=== PATIENT | male | born 1950 | race Caucasian/White ===

== ENCOUNTER 2021-06-14 08:15 | Outpatient (CLI) | payer MEDICARE, SELFPAY ==
--- NOTE | 2021-06-14 09:23 | ECG_ITS ---
Measurements Intervals [place] Rate: 55 P: 5 OR: 152 QRS: -33 QRSD: 107 T: 62 QT: 451 QTc: 435 Interpretive Statements SINUS BRADYCARDIA LEFT AXIS DEVIATION INCOMPLETE RIGHT BUNDLE BRANCH BLOCK BASELINE ARTIFACT- I, II, AVR, AVL BORDERLINE ECG Electronically Signed On 06-14-2021 9:41:49 CDT by Joaquim Xiong D.O.
[2021-06-14 10:19] LABS: Basophils Percent Auto 0.3 % (0.2-1.2); Eosinophils Absolute Auto 0.2 K/mm3 (0-0.3); Hematocrit 47.7 % (42.0-52.0); Hemoglobin 15.4 g/dL (14.0-18.0); Immature Granulocyte Absolute 0.03 K/mm3 (0.00-0.031); Immature Granulocyte Percent A 0.4 % (0-0.5); Lymphocytes Absolute Auto 1.81 K/mm3 (0.9-3.2); Lymphocytes Percent Auto 23.9 % (18.3-44.2); Mean Corpuscular HGB Conc 32.3 g/dl (32-36); Mean Corpuscular Hemoglobin 27.1 pg (26-34); Mean Corpuscular Volume 83.8 fl (80-100); Mean Platelet Volume 11.4 fl (7.4-10.4); Monocytes Absolute Auto 0.5 K/mm3 (0.1-0.6); Monocytes Percent Auto 6.3 % (2.6-8.5); Neutrophils Percent Auto 66.1 % (45.5-73.1); Platelet Count Result 204 k/mm3 (150-375); Red Blood Count 5.69 M/mm3 (4.6-6.20); White Blood Count 7.6 K/mm3 (4.5-10.0)
[2021-06-14 10:38] LABS: Albumin Level 4.8 g/dL (3.5-5.1); Estimated Glomerular Filt Rate 46; Glucose 104 mg/dL (65-110)
[2021-06-14 11:49] LABS: Urine Cotinine NEGATIVE
[2021-06-14 12:59] LABS: Hemoglobin A1C 6.1 % (<5.7)
== END 2021-06-14 08:16 | disposition home or self-care (01) ==
LOC: ANHSURGERY 08:18
PROVIDERS: PCP Internal Medicine; Visit Provider Orthopaedic Surgery
DX: Z01.818 Encounter for other preprocedural examination (principal); M16.11 Unilateral primary osteoarthritis, right hip; R00.1 Bradycardia, unspecified; I45.10 Unspecified right bundle-branch block; Z51.81 Encounter for therapeutic drug level monitoring; Z79.899 Other long term (current) drug therapy
CPT/HCPCS: 80307; 82040; 82565; 82947; 83036; 85025; 93005

== ENCOUNTER 2021-06-28 01:43 | Day surgery (SDC) | payer MEDICARE, SELFPAY ==
[2021-06-14 08:40] VITALS: BP 134/68; PULSE 57; RESP 18; TEMP 36.4; O2SAT 97; BMI 35.1
--- NOTE | 2021-06-22 15:17 | PM.IMHP ---
H&P: HPI History of Present Illness Date/Time: 06/22/21 15:17 The patient is a 71-year-old male who presents with chronic ongoing history of right hip and groin pain due to primary osteoarthritis right hip joint. The patient is aching pain is groin radiating to the thigh worse with activities and relieved by rest. He has start up pain rest pain and night pain limited motion is noted as well over time. Despite conservative measures including activity modification and anti-inflammatories the patient's symptoms continue. X-rays show significant severe degenerative joint disease in the right hip joint. At this point the patient has discussed further treatment options in detail with Dr. Ramos has failed conservative measures he would now like to proceed with a right total hip arthroplasty. The patient is doing well status post left total hip arthroplasty and quite pleased with the results. Chief Complaint: Severe primary osteoarthritis right hip joint with right hip pain. Review of Systems Review of Systems: All systems reviewed & are unremarkable except as noted in HPI and below PMFSH Social History Social History Smoking packs per day: 3 Smoking cigarettes per day: 60.0 Years smoked: 15 Smoking pack-years: 45.00 Smoking status: Former smoker Tobacco type: cigarettes Smoking end date: 09/02/87 Alcohol intake: former Alcohol use details: SOCIALLY IN PAST Substance use: never Additional living arrangements comments: [facility] Spiritual care concerns: No Meds Home Medications and Allergies Home Medications Medication Instructions Recorded Confirmed Type aspirin [Adult Aspirin EC Low 81 mg PO DAILY 06/14/21 06/14/21 History Strength] clopidogrel 75 mg PO DAILY 06/14/21 06/14/21 History diclofenac sodium 75 mg PO BID PRN 06/14/21 06/14/21 History fenofibrate 160 mg PO DAILY 06/14/21 06/14/21 History lisinopril 40 mg PO QNOON 06/14/21 06/14/21 History metoprolol tartrate 50 mg PO BID 06/14/21 06/14/21 History rosuvastatin 40 mg PO DAILY 06/14/21 06/14/21 History tramadol 50 mg PO Q6-8H PRN 06/14/21 06/14/21 History Allergies Allergy/AdvReac Type Severity Reaction Status Date / Time meperidine Allergy Severe CONVULSIONS Verified 06/14/21 08:27 Exam Narrative: On exam the patient is noted be a well-developed well-nourished male no acute distress he is alert oriented x3. Normal mood and affect. He is noted be 5 ft 10 in tall 250 lb with a BMI of 35.9. Hearing and vision are intact. Respiratory is good no distress. Pulse regular rate rhythm. Abdomen benign. Extremities showed the patient's right hip to be painful with manipulation and range of motion. He has a positive Stinchfield positive TADEO exam and pain with extremes of motion, the patient has limited internal external rotation. Patient walks with an antalgic gait because of his right groin and thigh pain. Strength is 5 5. Neurovascular is intact. Skin is intact without rashes or lesions. X-rays are as above. Central nervous system exam within normal limits. Assessment and Plan Additional Plan By previous x-ray and exam the patient is noted to have advanced primary osteoarthritis right hip joint. He is status post left total hip arthroplasty doing well with this. The patient has discussed risks benefits limitations and alternatives to surgery in great detail Dr. Ramos the patient is now ready to proceed with a right total hip arthroplasty. The patient is scheduled to undergo surgery 06/28/2021 at [facility] Dr. Ramos. The patient voiced understanding and agrees with the above plan.
--- NOTE | 2021-06-27 15:25 | P.PNAN_ITS ---
Anes - Initial Pre Proc Eval Procedure: Operation Date: 06/28/21 07:30 Proposed Procedures p Right Total Hip Arthroplasty - Kyle Ramos MD Date/Time: 06/27/21 15:25 Surgeon: Kyle Rmaos MD Pre Op Diagnosis: OA Right Hip Patient Data Age: 71 Gender: M Height: 1.78 m Weight: 111.1 kg Last Vital Signs Temp 97.6 F 06/14/21 08:40 Pulse 57 L 06/14/21 08:40 Resp 18 06/14/21 08:40 BP 134/68 06/14/21 08:40 Pulse Ox 97 06/14/21 08:40 Allergies Allergy/AdvReac Type Severity Reaction Status Date / Time meperidine Allergy Severe CONVULSIONS Verified 06/28/21 07:04 Home Medications Medication Instructions Recorded Confirmed Type aspirin [Adult Aspirin EC Low 81 mg PO DAILY 06/14/21 06/28/21 History Strength] clopidogrel 75 mg PO DAILY 06/14/21 06/28/21 History diclofenac sodium 75 mg PO BID PRN 06/14/21 06/14/21 History fenofibrate 160 mg PO DAILY 06/14/21 06/28/21 History lisinopril 40 mg PO QNOON 06/14/21 06/28/21 History metoprolol tartrate 50 mg PO BID 06/14/21 06/28/21 History rosuvastatin 40 mg PO DAILY 06/14/21 06/28/21 History tramadol 50 mg PO Q6-8H PRN 06/14/21 06/28/21 History Patient hx anesthesia problems: none Family hx anesthesia problems: none Results Review: All pre-operative results and documents have been reviewed as part of the pre-operative evaluation. [facility] Past Medical History Medical History (Updated 06/27/21 @ 15:26 by Jose Stern MD) Atrial fibrillation CAD (coronary artery disease) Hyperlipidemia Hypertension Surgical History Surgical History (Updated 06/27/21 @ 15:26 by Jose Stern MD) Stented coronary artery Social History Social History Smoking packs per day: 3 Smoking cigarettes per day: 60.0 Years smoked: 15 Smoking pack-years: 45.00 Smoking status: Former smoker Tobacco type: cigarettes Smoking end date: 09/02/87 Alcohol intake: former Alcohol use details: SOCIALLY IN PAST Substance use: never Living arrangements: other Additional living arrangements comments: [facility] Spiritual care concerns: No Anes - Eval Final PreProcedure Day of Procedure 06/27/21 15:25 Patient weight: obese Heart: regular rate and rhythm Lungs: clear to auscultation Airway: Mallampati scale class III (discussed loose and chipped teeth; he's aware of potential damage and accepts) Neurological: alert and oriented Last oral intake: >/= 8 hours ASA classification: III Emergent: no Anesthetic plan: proceed Anesthesia type and monitoring: general ETT and standard monitoring Results Review: All pre-operative results and documents have been reviewed as part of the pre-operative evaluation. Informed Consent: The patient's anesthetic plan and its attendant risks and benefits were discussed with the patient/family/POA. Questions were solicited and answers provided to the satisfaction of the patient/family/POA.
[2021-06-28] VITALS (17 sets, daily range): BP systolic 113–148; BP diastolic 59–84; PULSE 55–90; RESP 10–20; TEMP 36–37.1; O2SAT 92–100
--- NOTE | ~2021-06-28 | XR_ITS ---
EXAMINATION: XR surgery orthopedic EXAM DATE: 06/28/2021 10:09 INDICATION: Right hip intraoperative images. Surgery. TECHNIQUE: Frontal portable intraoperative image of lower aspect of pelvis, hips. FINDINGS: Images demonstrate intermediary right femoral hardware, broach in position. Acetabular com ponent of right hip arthroplasty is in position. There is subcutaneous gas, probably some gas in the hip joint. Left hip arthroplasty hardware in position. IMPRESSION: Intraoperative portable image demonstrating orthopedic hardware in position. Reviewed, dictated and finalized at location B.
[2021-06-28] MEDS: LACTATED RINGERS 1,000 ML 30 ML IV CONT ×2 (06:48→10:40)
[2021-06-28] MEDS: ACETAMINOPHEN 500 MG TABLET 1000 MG PO (06:51)
[2021-06-28] MEDS: TRANEXAMIC ACID 1,000MG/ISO100 1,000 MG/100 ML BAG 200 MG IVPB (06:51)
--- NOTE | 2021-06-28 07:10 | WPDHPUPDATE1 ---
History and Physical Update Update Date/Time: 06/28/21 07:10 History and Physical has been reviewed, including an updated exam of the patient. There are NO changes in the patient's condition. Risks, benefits, and alternatives have been discussed and questions answered. Patient agrees to proceed with procedure.
[2021-06-28] MEDS: ceFAZolin 2 GM/D5W 50 ML 2 GM/50 ML BAG IVPB ×2 (07:37→16:57)
--- NOTE | 2021-06-28 10:07 | P.OP_ITS ---
Procedure Note - Detailed Date of Procedure 06/28/21 Pre-op Diagnosis OA Right Hip Post-op Diagnosis same Procedure Performed [Right] total hip arthroplasty Surgeon Kyle Ramos MD Electric Organ Checker Jarret Manning Anesthesia general Description of Procedure Patient was brought to the operating room and anesthetic was administered. The patient was placed with the [Right] up and steriley prepped and draped in the usual manner. Longitudinal incision was done, dissection carried down to the f ascia. A Hardinge type approach was used and the femoral head was dislocated anteriorly. Femoral head was removed a finger breath above the lesser trochanter. The acetabulum was serially reamed to accept a [54] component. This was impacted into place and secured with 2 25mm screws. A high wall liner was placed. The femur was reamed and broached to accept a [14] component which was impacted into place. A plus [3] ball and neck were placed and the hip was put through full range of motion. The hip was noted to be stable. The wounds were then closed in a layer fashion using #5 ethibond, 2 vicryl, 2-0 vicryl and max. Patient left the operating room in satisfactory condition. Estimated Blood Loss 600 Drains No Packing No Pathology none sent Complications No immediate complications Condition stable Disposition PACU
[2021-06-28 11:18] LABS: Hematocrit 41.5 % (42.0-52.0); Hemoglobin 13.4 g/dL (14.0-18.0)
[2021-06-28] MEDS: HYDROmorphone HCL INJ (*CRX) 1 MG/ML SYR 0.25 MG IV PUSH (11:45)
[2021-06-28] MEDS: lisinopriL 20 MG TABLET 40 MG PO (16:58)
--- NOTE | 2021-06-28 18:09 | PM.IMCN ---
Assessment and Plan Assessment and plan (1) S/P total right hip arthroplasty: Code(s): Z96.641 - Presence of right artificial hip joint Status: Chronic Assessment and Plan: Postop care per orthopedic physician. DVT prophylaxis per orthopedic physician (2) Hypertension: Code(s): I10 - Essential (primary) hypertension Status: Chronic Assessment and Plan: Continue with lisinopril and metoprolol (3) Hyperlipidemia: Code(s): E78.5 - Hyperlipidemia, unspecified Status: Chronic Assessment and Plan: Continue with Crestor (4) Atrial fibrillation: Code(s): I48.91 - Unspecified atrial fibrillation Status: Chronic Assessment and Plan: Continue with metoprolol an aspirin (5) CAD (coronary artery disease): Code(s): I25.10 - Atherosclerotic heart disease of [place] coronary artery without angina pectoris Status: Chronic Assessment and Plan: Continue with aspirin and Plavix HPI Data of Consult Consult date: 06/28/21 Requesting Physician: Kyle Ramos MD Primary Care Provider: Ezequiel GriffinMD Consult Narrative Narrative: Jermaine Perkins is a 71 year old male who has ongoing history of right hip pain and right groin pain due to primary osteoarthritis his right hip. The patient has had his left hip replaced in the past without any difficulty. The pain in his right hip has been getting worse with activities and relieved by rest. His has start-up pain and pain at rest. He has limited motion to his right hip. Despite the conservative measures including activity modification pain management and anti-inflammatories the patient's symptoms persist. X-ray shows significant severe degenerative joint disease in the right hip joint. Patient proceeded with elective right total hip replacement. See postop note. The patient is admitted to outpatient procedure. I thank [facility] for this opportunity to consult on this pleasant patient date of service is 06/28/2021 Review of Systems Review of Systems: All systems reviewed & are unremarkable except as noted in HPI and below Constitutional: Constitutional: Reports as per HPI and Reports no additional constitutional complaints Eyes: Eyes: Reports as per HPI and Reports no additional eye complaints ENT: Reports system reviewed and no additional complaints, except as documented and Reports Normal hearing present Cardiovascular: Cardiovascular: Reports no additional cardiovascular complaints Respiratory: Respiratory: Reports no additional respiratory complaints and Reports no additional respiratory complaints Gastrointestinal: Gastrointestinal: Reports as per HPI and Reports no additional gastrointestinal complaints Musculoskeletal: Musculoskeletal: Reports no additional musculoskeletal complaints Integumentary/Breasts: Skin/Breast: Reports system reviewed and no additional complaints, except as docu and Reports as per HPI Neurologic: Reports system reviewed and no additional complaints, except as documented, Reports as per HPI and Reports Normal hearing present Psychiatric: Psychiatric: Reports no additional psychiatric complaints and Reports as per HPI Endocrine: Endocrine: Reports no additional endocrine complaints Hematologic/Lymphatic: Hematologic/Lymphatic: Reports no additional hematologic/lymphatic complaints Allergic/Immunologic: Allergic/Immunologic: Reports no additional allergic/immunologic complaints [facility] Past Medical History Medical History (Updated 06/28/21 @ 18:14 by Nessa Sahu NP) Atrial fibrillation CAD (coronary artery disease) Hyperlipidemia Hypertension Surgical History Surgical History (Updated 06/28/21 @ 18:14 by Nessa Sahu NP) History of total left hip arthroplasty S/P total right hip arthroplasty Stented coronary artery 7 stents Family History Family History (Updated 06/28/21 @ 18:23 by Nessa Sahu NP) Mother Carcinoma of
[2021-06-28] MEDS: HYDROcodone/acetaminophen (*CRX) 7.5-325 MG TABLET 1 TAB PO (21:14)
[2021-06-28] MEDS: METOPROLOL TARTRATE 50 MG TAB PO (21:17)
[2021-06-28] MEDS: DOCUSATE SODIUM 100 MG CAPSULE PO (21:17)
[2021-06-28] MEDS: FAMOTIDINE 20 MG TABLET PO (21:17)
[2021-06-29] MEDS: ceFAZolin 2 GM/D5W 50 ML 2 GM/50 ML BAG IVPB ×2 (00:41→08:44)
[2021-06-29 02:27] VITALS: BP 105/53; PULSE 65; RESP 20; TEMP 37.1; O2SAT 94
[2021-06-29 04:52] VITALS: BP 105/53; PULSE 65; RESP 20; TEMP 36.7; O2SAT 94
[2021-06-29 04:53] VITALS: BP 105/53; PULSE 65; RESP 20; TEMP 36.7; O2SAT 94
[2021-06-29 05:16] LABS: Basophils Percent Auto 0.1 % (0.2-1.2); Hematocrit 37.4 % (42.0-52.0); Hemoglobin 12.2 g/dL (14.0-18.0); Immature Granulocyte Absolute 0.02 K/mm3 (0.00-0.031); Immature Granulocyte Percent A 0.2 % (0-0.5); Lymphocytes Absolute Auto 0.93 K/mm3 (0.9-3.2); Lymphocytes Percent Auto 10.4 % (18.3-44.2); Mean Corpuscular HGB Conc 32.6 g/dl (32-36); Mean Corpuscular Hemoglobin 27.3 pg (26-34); Mean Corpuscular Volume 83.7 fl (80-100); Mean Platelet Volume 11.3 fl (7.4-10.4); Monocytes Percent Auto 10.9 % (2.6-8.5); Neutrophils Percent Auto 78.4 % (45.5-73.1); Platelet Count Result 167 k/mm3 (150-375); Red Blood Count 4.47 M/mm3 (4.6-6.20); Red Cell Distribution Width 13.9 % (11.5-14.5)
[2021-06-29 05:30] LABS: Anion Gap 8 mmol/L (8-16); Blood Urea Nitrogen 19 mg/dL (9-20); Calcium 8.5 mg/dL (8.4-10.2); Carbon Dioxide 24 mmol/L (22-30); Chloride 102 mmol/L (98-107); Estimated CRCL calculation 59 ml/min; Estimated Glomerular Filt Rate 55; Glucose 151 mg/dL (65-110); Potassium 4.2 mmol/L (3.4-5.0); Sodium 134 mmol/L (137-145)
[2021-06-29 08:06] VITALS: BP 129/51; PULSE 73; O2SAT 97
[2021-06-29] MEDS: ASPIRIN 81 MG ENTERIC TABLET PO (08:07)
[2021-06-29 08:08] VITALS: PULSE 73
[2021-06-29] MEDS: CLOPIDOGREL BISULFATE 75 MG TABLET PO (08:08)
[2021-06-29] MEDS: FAMOTIDINE 20 MG TABLET PO (08:08)
[2021-06-29] MEDS: FENOFIBRATE 160 MG TABLET PO (08:08)
[2021-06-29] MEDS: CELECOXIB 200 MG CAPSULE PO (08:08)
[2021-06-29] MEDS: DOCUSATE SODIUM 100 MG CAPSULE PO (08:08)
[2021-06-29] MEDS: METOPROLOL TARTRATE 50 MG TAB PO (08:08)
[2021-06-29] MEDS: ROSUVASTATIN 10 MG TABLET 40 MG PO (08:08)
[2021-06-29] MEDS: HYDROcodone/acetaminophen (*CRX) 7.5-325 MG TABLET 1 TAB PO (08:09)
[2021-06-29 10:27] VITALS: BP 139/52; PULSE 70; RESP 18; TEMP 36.4; O2SAT 96
--- NOTE | 2021-06-29 11:21 | PM.PNORT ---
Progress Note: A&P Additional Plan Patient is postop day 1 status post right total hip arthroplasty, is doing well would like to home today. Will get everything set up for him he will follow-up in 2 weeks postop for staple removal and wound recheck. The patient voiced understanding agrees above plan. See discharge orders. Subjective Subjective Date/Time Seen: 06/29/21 11:21 Patient is 1 day status post right total hip arthroplasty for treatment of severe primary osteoarthritis right hip joint. Today therapy went well patient has no complaints pain is well controlled. He is feeling well otherwise he would like to go home later today p.o. intake was good. Review of Systems Review of Systems: All systems reviewed & are unremarkable except as noted in HPI and below Exam Narrative: Vital signs are stable patient is afebrile Skin is intact wound is clean dry calves are benign. Patient is feeling well sitting up in no acute distress tolerated physical therapy very well today walked up and down the [place] with a walker independently. Pain is well controlled. Neurovascular is intact. Thigh compartments are soft with only mild swelling status post right total hip arthroplasty. Objective Data Vital Signs Vital Signs: Vital Signs - 24 hr 06/28/21 11:25 06/28/21 11:40 06/28/21 11:55 Temperature Pulse Rate 64 60 61 Respiratory Rate 13 12 12 Blood Pressure 140/80 144/84 H 144/78 H Pulse Oximetry 94 95 95 06/28/21 12:10 06/28/21 12:42 06/28/21 12:57 Temperature 36.7 C 36.3 C L 36.3 C L Pulse Rate 61 64 76 Respiratory Rate 16 18 16 Blood Pressure 144/78 H 148/74 H 139/66 Pulse Oximetry 96 96 92 06/28/21 13:27 06/28/21 14:27 06/28/21 15:20 Temperature 36.6 C 36.3 C L Pulse Rate 74 62 Respiratory Rate 18 18 Blood Pressure 141/64 H 147/72 H Pulse Oximetry 94 94 97 06/28/21 18:27 06/28/21 21:17 06/28/21 21:20 Temperature 37.1 C 37.1 C Pulse Rate 90 90 90 Respiratory Rate 20 20 Blood Pressure 113/59 L 113/59 L Pulse Oximetry 93 93 06/28/21 22:27 06/29/21 02:27 06/29/21 04:52 Temperature 37.1 C 37.1 C 36.7 C Pulse Rate 90 65 65 Respiratory Rate 20 20 20 Blood Pressure 113/59 L 105/53 L 105/53 L Pulse Oximetry 93 94 94 06/29/21 04:53 06/29/21 08:06 06/29/21 08:08 Temperature 36.7 C Pulse Rate 65 73 73 Respiratory Rate 20 Blood Pressure 105/53 L 129/51 L Pulse Oximetry 94 97 Intake/Output Intake/Output: Intake & Output 06/26/21 06/27/21 06/28/21 06/29/21 23:59 23:59 23:59 23:59 Intake Total 3390 900 Output Total 750 Balance 3390 150 Meds/Results Medications: Active Medications Generic Name Dose Route Start Last Admin Trade Name Freq PRN Reason Stop Dose Admin Acetaminophen 650 mg 06/28/21 12:42 Acetaminophen 325 Mg Tablet PO Q6H PRN Mild Pain (1-3) or Fever Hydrocodone Bitart/Acetaminophen 1 tab 06/28/21 12:42 06/29/21 08:09 Hydrocodone/Acetaminophen (*Crx) 7.5-325 Mg Tablet PO 1 tab Q3H PRN Administration Pain Rated 4-6 Aspirin 81 mg 06/29/21 09:00 06/29/21 08:07 Aspirin 81 Mg Enteric Tablet PO 81 mg DAILY IVAN Administration Celecoxib 200 mg 06/29/21 09:00 06/29/21 08:08 Celecoxib 200 Mg Capsule PO 200 mg DAILY IVAN Administration Clopidogrel Bisulfate 75 mg 06/29/21 09:00 06/29/21 08:08 Clopidogrel Bisulfate 75 Mg Tablet PO 75 mg DAILY IVAN Administration Cyclobenzaprine HCl 10 mg 06/28/21 12:42 Cyclobenzaprine Hcl 10 Mg Tablet PO Q8H PRN Muscle Spasm Docusate Sodium 100 mg 06/28/21 21:00 06/29/21 08:08 Docusate Sodium 100 Mg Capsule PO 100 mg Q12HR IVAN Administration Famotidine 20 mg 06/28/21 21:00 06/29/21 08:08 Famotidine 20 Mg Tablet PO 20 mg Q12HR IVAN Administration Fenofibrate 160 mg 06/29/21 09:00 06/29/21 08:08 Fenofibrate 160 Mg Tablet PO 160 mg DAILY IVAN Administration Lisinopril 40 mg 06/28/21 17:00 06/28/21 16:58 Moraima
--- NOTE | 2021-06-29 11:31 | PM.DS ---
DS: Admitting Diagnosis Discharge Date June 29, 2021 Admitting Diagnosis severe primary osteoarthritis right hip joint discharge diagnosis severe primary osteoarthritis right hip joint status post total hip arthroplasty right hip DS: Summary Hospital Course Hospital Course: Patient was taken to the operating room on June 28, 2021 with a diagnosis of severe primary osteoarthritis right hip joint. Total hip arthroplasty right hip was performed by Dr. Kyle Ramos, the patient was discharged to recovery and then to the postop surgical floor in good condition. Postop day 1 he was doing well pain is well controlled ambulating independently with a walker touchdown weight-bearing. Vital signs are stable he is afebrile neurovascular is intact wound is clean and dry calves are benign patient is deemed stable for discharge home postop day 1 patient voiced understanding agrees above plan and will follow-up 2 weeks postop for staple removal and wound recheck. See discharge orders. Time Spent with Patient Time attestation: Total time spent providing and/or coordinating discharge services: patient was discharged home postop day 1 status post right total hip arthroplasty in good condition, vital signs are stable is afebrile neurovascular patient is intact wound is clean and dry calves are benign patient did well in therapy was up ambulating independently with a walker tolerating p.o. well pain is well controlled. The patient was deemed stable for discharge home postop day 1. Exam Narrative: Postop day 1 the patient was alert oriented x3. Normal mood affect. In no acute distress. Patient was feeling good pain is well controlled. Vital signs are stable he is afebrile neurovascular is intact wound is clean and dry calves are benign ambulating independently with a walker touchdown weight-bearing right lower extremity. DS: Data Data Completed and Pending Labs on day of discharge: Labs from last 24 hours 06/29/21 06/29/21 04:45 04:45 WBC 9.0 RBC 4.47 L Hgb 12.2 L Hct 37.4 L MCV 83.7 MCH 27.3 MCHC 32.6 RDW 13.9 Plt Count 167 MPV 11.3 H Immature Gran % (Auto) 0.2 Neut % (Auto) 78.4 H Lymph % (Auto) 10.4 L [place] % (Auto) 10.9 H Eos % (Auto) 0.0 Baso % (Auto) 0.1 L Lymph # (Auto) 0.93 [place] # (Auto) 1.0 H Eos # (Auto) 0.0 Baso # (Auto) 0.0 Abs Immat Gran (auto) 0.02 Absolute Neuts (auto) 7.0 H Absolute Nucleated RBC 0.0 Nucleated RBC % 0.0 Sodium 134 L Potassium 4.2 Chloride 102 Carbon Dioxide 24 Anion Gap 8 BUN 19 Creatinine 1.30 Estim Creat Clear Calc 59 Estimated GFR 55 L Glucose 151 H Calcium 8.5 Discharge Plan Discharge Patient Disposition: Home, Self-Care Discharge Instructions: patient is discharged home today in stable condition status post total hip arthroplasty. Patient is to be discharged with hydrocodone 7.5 mg 1 tablet every 3-4 hours p.r.n. pain. The patient will resume his Plavix daily for anticoagulation. Patient will be up ambulating independently with a walker touchdown weight-bearing right lower extremity following hip precautions and physical therapy exercises as instructed in the hospital. The patient will keep the wound clean and dry watch for evidence of drainage or infection change dressing daily. He will resume a general diet. The patient is to follow-up at 2 weeks postop for staple removal and wound recheck. The patient is instructed to call the office immediately at [phone] for any problems difficulties or questions. Patient Instructions: Clopidogrel (By mouth), Total Hip Replacement (DC) Stand Alone Forms: Avoid NSAIDs Follow-up/Referrals: Kyle Ramos MD [Physician] - Discharge Medications: New hydrocodone-acetaminophen 7.5-325 mg Tablet 1 tablet PO Q3H PRN (Reason: Pain Rated 4-6) Qty: 50 RF: 0 Continued clopidogrel 75 mg tablet 75 mg PO DAILY RF: 0 metoprolol tartrate 50 mg table
[2021-06-29] MEDS: lisinopriL 20 MG TABLET 40 MG PO (11:45)
--- NOTE | 2021-06-29 13:10 | PM.IMPN ---
Progress Note: A&P Assessment and Plan (1) S/P total right hip arthroplasty: Code(s): Z96.641 - Presence of right artificial hip joint Status: Chronic Assessment and Plan: Postop care per orthopedic physician. DVT prophylaxis per orthopedic physician 06/29/21 13:10 patient is 71-year-old male with severe osteoarthritis of right hip conservative management failed and patient was taken to OR and had a total right hip arthroplasty, patient states is feeling much better has no complaint, able to work with physical therapy, patient is seen by orthopedic service and will be discharged today. (2) Hypertension: Code(s): I10 - Essential (primary) hypertension Status: Chronic Assessment and Plan: Continue with lisinopril and metoprolol (3) Hyperlipidemia: Code(s): E78.5 - Hyperlipidemia, unspecified Status: Chronic Assessment and Plan: Continue with Crestor (4) Atrial fibrillation: Code(s): I48.91 - Unspecified atrial fibrillation Status: Chronic Assessment and Plan: Continue with metoprolol an aspirin (5) CAD (coronary artery disease): Code(s): I25.10 - Atherosclerotic heart disease of [place] coronary artery without angina pectoris Status: Chronic Assessment and Plan: Continue with aspirin and Plavix Subjective Date/time seen: 06/29/21 13:10 patient is 71-year-old male with severe osteoarthritis of right hip conservative management failed and patient was taken to OR and had a total right hip arthroplasty, patient states is feeling much better has no complaint, able to work with physical therapy, patient is seen by orthopedic service and will be discharged today. Review of Systems Review of Systems: All systems reviewed & are unremarkable except as noted in HPI and below Exam Narrative: Patient is comfortable, NAD HEENT: eyes are clear and none icteric LUNGS:CTA HEART: RR S1S2 ABD: BS+, Soft and nontender Lower extremities: no edema SKIN: nonjaundiced Neuro: grossly intact. Objective Data Vital Signs Vital Signs: Vital Signs - 24 hr 06/28/21 13:27 06/28/21 14:27 06/28/21 15:20 Temperature 97.9 F 97.4 F L Pulse Rate 74 62 Respiratory Rate 18 18 Blood Pressure 141/64 H 147/72 H Pulse Oximetry 94 94 97 06/28/21 18:27 06/28/21 21:17 06/28/21 21:20 Temperature 98.8 F 98.8 F Pulse Rate 90 90 90 Respiratory Rate 20 20 Blood Pressure 113/59 L 113/59 L Pulse Oximetry 93 93 06/28/21 22:27 06/29/21 02:27 06/29/21 04:52 Temperature 98.8 F 98.7 F 98.0 F Pulse Rate 90 65 65 Respiratory Rate 20 20 20 Blood Pressure 113/59 L 105/53 L 105/53 L Pulse Oximetry 93 94 94 06/29/21 04:53 06/29/21 08:06 06/29/21 08:08 Temperature 98.1 F Pulse Rate 65 73 73 Respiratory Rate 20 Blood Pressure 105/53 L 129/51 L Pulse Oximetry 94 97 06/29/21 10:27 Temperature 97.6 F Pulse Rate 70 Respiratory Rate 18 Blood Pressure 139/52 L Pulse Oximetry 96 Intake/Output Intake/Output: Intake & Output 06/26/21 06/27/21 06/28/21 06/29/21 23:59 23:59 23:59 23:59 Intake Total 3390 900 Output Total 750 Balance 3390 150 Meds/Results Medications: Active Medications Generic Name Dose Route Start Last Admin Trade Name Freq PRN Reason Stop Dose Admin Acetaminophen 650 mg 06/28/21 12:42 Acetaminophen 325 Mg Tablet PO Q6H PRN Mild Pain (1-3) or Fever Hydrocodone Bitart/Acetaminophen 1 tab 06/28/21 12:42 06/29/21 08:09 Hydrocodone/Acetaminophen (*Crx) 7.5-325 Mg Tablet PO 1 tab Q3H PRN Administration Pain Rated 4-6 Aspirin 81 mg 06/29/21 09:00 06/29/21 08:07 Aspirin 81 Mg Enteric Tablet PO 81 mg DAILY IVAN Administration Celecoxib 200 mg 06/29/21 09:00 06/29/21 08:08 Celecoxib 200 Mg Capsule PO 200 mg DAILY IVAN Administration Clopidogrel Bisulfate 75 mg 06/29/21 09:00 06/29/21 08:08 Clopidogrel Bisulfate 75 Mg Tablet PO 75 mg DAILY
--- NOTE | 2021-06-29 14:09 | PC.NURSE ---
Pt to [facility]. Pt is accompanied by . Pt and agree they will be discharging at 1500. They have a ride arranged at this time. DC instructions given by [employer] RN. IV cath removed by [employer] RN. This RN will DC pt as soon as ride arrives.
--- NOTE | 2021-06-29 15:05 | PC.NURSE ---
Pt departs [facility] with driving. Pt escorted to private vehicle via wheelchair. Pt aware he is not to drive after medications given today. Pt assisted into car with driving. DC instructions discussed with 2Mjosé miguel [place]. VSS upon DC.
== END 2021-06-29 15:05 | disposition home or self-care (01) ==
LOC: ANHSURGERY 06:20 → ANH2MED 12:59 → ANHCPC 06-29 14:42
PROVIDERS: PCP Internal Medicine; Visit Provider Orthopaedic Surgery
PROC: (CPT 27130; principal; 2021-06-28 07:30)
DX: M16.11 Unilateral primary osteoarthritis, right hip (principal); Z96.642 Presence of left artificial hip joint; I10 Essential (primary) hypertension; E78.5 Hyperlipidemia, unspecified; I48.91 Unspecified atrial fibrillation; Z79.01 Long term (current) use of anticoagulants; Z79.82 Long term (current) use of aspirin; E66.9 Obesity, unspecified; Z68.35 Body mass index [BMI] 35.0-35.9, adult; I25.10 Atherosclerotic heart disease of native coronary artery without angina pectoris; Z95.5 Presence of coronary angioplasty implant and graft; Z87.891 Personal history of nicotine dependence
CPT/HCPCS: 27130; 36415; 80048; 80307; 82040; 82565; 82947; 83036; 85014; 85018; 85025; 86850; 86900; 86901; 93005; 97110; 97116; 97161; 97165; 97530; 97535; A9270; C1776; C9290; J0171; J0690; J1100; J1170; J1885; J2250; J2270; J2405; J2704; J2710; J2795; J3010; J3370; J7120